=== PATIENT | female | born 1970 | race Two or more races ===

== ENCOUNTER 2021-09-16 14:28 | Emergency (ER) | payer BC ==
[~2021-09-16] VITALS: Ht 175.3 cm; Wt 135.6 kg
[2021-09-16] MEDS ORDERED: TOPROL XL25 M1 PO (14:53)
[2021-09-16] MEDS ORDERED: COZAAR25 MG PO (14:53)
== END 2021-09-16 18:43 | disposition home or self-care (01) ==
LOC: ER 14:28
DX: R21 Rash and other nonspecific skin eruption (principal); I10 Essential (primary) hypertension; Z20.822 Contact with and (suspected) exposure to COVID-19